=== PATIENT | female | born 1955 | race Hispanic/Latino ===

== ENCOUNTER 2017-08-07 09:36 | Outpatient (CLI) | payer BC ==
--- NOTE | 2017-08-07 15:50 | Mammography Report ---
BILATERAL DIGITAL SCREENING MAMMOGRAM WITH CAD: 08/07/17 09:36:00 CLINICAL: Routine screening. COMPARISON:07/11/16 and 06/28/16 FINDINGS: The breasts are heterogeneously dense, which may obscure small masses. New left upper outer calcifications require additional imaging.No mass architectural distortion.The right breast is negative. IMPRESSION: Left calcifications requiring further workup. BI-RADS CATEGORY: 0 -- Additional Imaging Evaluation Required RECOMMENDATION: Recall for left ML and CC and ML Spot magnification views. ACR BI-RADS MAMMOGRAPHIC CODES: 0 = Needs additional imaging evaluation; 1 = Negative; 2 = Benign; 3 = Probably benign; 4 = Suspicious; 5 = Malignant; 6 = Known biopsy-proven malignancy COMMENT: 1. Dense breast tissue, i.e., adenosis, fibrocystic changes, etc., may obscure an underlying neoplasm. 2. Approximately 10% of cancers are not detected with mammography. 3. A negative mammography report should not delay biopsy if a clinically suspicious mass is present. COMMENT: Patient follow-up letters are generated via our [employer] application.
== END 2017-08-07 09:37 | disposition home or self-care (01) ==
LOC: SPVWC 09:36
PROVIDERS: ATTEND Obstetrics & Gynecology
DX: Z12.31 Encounter for screening mammogram for malignant neoplasm of breast (principal)
CPT/HCPCS: 77067; G0202

== ENCOUNTER 2017-08-21 12:53 | Outpatient (CLI) | payer BC ==
--- NOTE | 2017-08-21 14:19 | Mammography Report ---
LEFT DIGITAL DIAGNOSTIC MAMMOGRAM : 08/21/17 12:53:00 CLINICAL: Recall to evaluate calcifications. COMPARISON:08/07/17 FINDINGS: Lateralmedial and CC magnification views demonstrate scattered amorphous calcifications in the upper outer quadrant withintermediate suspicion for malignancy. One distinct group is more suspicious than others. No associated mass or architectural distortion. IMPRESSION: Calcifications within immediate suspicion for malignancy. BI-RADS CATEGORY: 4--Suspicious RECOMMENDATION: Stereotactic biopsy of the left breast. I discussed the findings and the recommendation for a left stereotactic needle core biopsy with the patient at the time of the examination. ACR BI-RADS MAMMOGRAPHIC CODES: 0 = Needs additional imaging evaluation; 1 = Negative; 2 = Benign; 3 = Probably benign; 4 = Suspicious; 5 = Malignant; 6 = Known biopsy-proven malignancy COMMENT: 1. Dense breast tissue, i.e., adenosis, fibrocystic changes, etc., may obscure an underlying neoplasm. 2. Approximately 10% of cancers are not detected with mammography. 3. A negative mammography report should not delay biopsy if a clinically suspicious mass is present. COMMENT: Patient follow-up letters are generated by our [employer] application.
== END 2017-08-21 12:54 | disposition home or self-care (01) ==
LOC: SPVWC 12:53
PROVIDERS: ATTEND Obstetrics & Gynecology
DX: R92.1 Mammographic calcification found on diagnostic imaging of breast (principal)
CPT/HCPCS: G0206-LT

== ENCOUNTER 2017-09-04 08:30 | Outpatient (CLI) | payer BC ==
--- NOTE | 2017-09-04 11:54 | Mammography Report ---
STEREOTACTIC VACUUM ASSISTED BIOPSY WITH CLIP PLACEMENT LEFT BREAST: 09/04/17 08:30:00 CLINICAL: Calcifications in the upper-outer quadrant. The patient discontinued her Xarelto on 09/01/17. COMPARISON:08/21/17 FINDINGS: Consent for the procedure was obtained. The most suspicious calcifications were targeted with stereotactic guidance. The skin was prepped with Betadine and anesthetized with 1% lidocaine. 2% lidocaine with epinephrine was injected for deeper anesthesia. 8 gauge Mammotome biopsy was performed from a lateral approach through a small dermatotomy. Prefire and post-fire images demonstrated satisfactory positioning of the probe. Samples were obtained around the clock face. A specimen radiograph confirmed satisfactory sampling with removal of farm loan representative calcifications. A clip was placed at the biopsy site and clip deployment was confirmed with a radiograph prior to removing the probe. The probe was removed and hemostasis was readily achieved. A sterile dressing was applied. The patient tolerated the procedure well and there were no apparent complications. A 2 view mammogram demonstrated concordant position of the biopsy clip and removal of some of the previously described calcifications.The patient left the department in good condition and was given instructions for wound care and followup. She was also instructed to start retaking Xarelto tomorrow morning. IMPRESSION: Uncomplicated stereotactic biopsy with clip placement left breast.
--- NOTE | 2017-09-04 11:57 | Mammography Report ---
LEFT DIGITAL DIAGNOSTIC MAMMOGRAM: 09/04/17 08:30:00 CLINICAL: For clip placement immediately status post stereotactic biopsy. COMPARISON:08/21/17 FINDINGS: A biopsy clip is now identified in the outer breast and the clip position is concordant with previously described calcifications. Some calcifications have been removed. No post biopsy hematoma. IMPRESSION: Concordant clip placement status post stereotactic biopsy. BI-RADS CATEGORY: 4--Suspicious Pathology pending.
== END 2017-09-04 08:31 | disposition home or self-care (01) ==
LOC: SPVWC 08:30
PROVIDERS: ATTEND Obstetrics & Gynecology
DX: R92.0 Mammographic microcalcification found on diagnostic imaging of breast (principal)
CPT/HCPCS: 19081; 77065; 88305; A4648; 88341; 88342; 88361